=== PATIENT | female | born 1965 | race Caucasian/White ===

== ENCOUNTER 2019-10-05 17:30 | Emergency (ER) | payer OTHER, SELFPAY ==
--- NOTE | 2019-10-05 17:37 | ECG_ITS ---
Measurements Intervals [place] Rate: 78 P: 62 CO: 128 QRS: 83 QRSD: 98 T: 81 QT: 432 QTc: 492 Interpretive Statements SINUS RHYTHM VOLTAGE CRITERIA FOR LVH BORDERLINE ECG Electronically Signed On 10-06-2019 9:13:51 SVP by Grover Irizarry D.O.
[2019-10-05 17:52] VITALS: BP 167/97; PULSE 73; RESP 18; TEMP 36.5; O2SAT 100
--- NOTE | 2019-10-05 17:54 | PC.NURSE ---
Pt. rubbed their nipples to another RN while licking their mouth stating Come here and get a piece of this while pointing to their vaginal region. Pt. also stated to another RN that Rn was a sexy little thing while licking all over an emesis bag.
[2019-10-05 18:10] LABS: Basophils Absolute Auto 0.1 K/mm3 (0.0-0.1); Basophils Percent Auto 0.7 % (0.2-1.2); Eosinophils Percent Auto 0.3 % (0-4.4); Hematocrit 42.6 % (37.0-47.0); Hemoglobin 14.1 g/dL (12.0-15.0); Lymphocytes Absolute Auto 2.57 K/mm3 (0.9-3.2); Lymphocytes Percent Auto 25.7 % (18.3-44.2); Mean Corpuscular HGB Conc 33.1 g/dl (32-36); Mean Corpuscular Hemoglobin 30.5 pg (26-34); Monocytes Absolute Auto 0.6 K/mm3 (0.1-0.6); Monocytes Percent Auto 5.5 % (2.6-8.5); Neutrophils Absolute Auto 6.7 K/mm3 (1.3-6.7); Neutrophils Percent Auto 66.8 % (45.5-73.1); Platelet Count Result 369 k/mm3 (150-375); Red Blood Count 4.63 M/mm3 (4.2-5.4); Red Cell Distribution Width 12.5 % (11.5-14.5)
--- NOTE | 2019-10-05 18:10 | ED.ALCOHOL ---
HPI - Alcohol General Chief Complaint: Alcohol Stated Complaint: INTOXICATION Time Seen by Provider: 10/05/19 18:01 Source: patient, family (pt's sister) and RN notes reviewed Mode of arrival: EMS Limitations: intoxication History of Present Illness HPI narrative: Pt is a 53 y/o female with a Hx of anxiety and heroin abuse, who presents to the ED via EMS with c/o possible suicide attempt. According to the pt's sister, she has a Hx of heroin overdose. Pt's sister notes that she hasn't been normal ever since the overdose. She notes that she had drank several beers as well as several shots of [place] this afternoon. Pt's sister states that her son found the pt laying in her bed at home this evening with the gas on her stove left on. Pt's sister notes that she believed she was trying to kill herself, but states that the pt didn't leave a note or discuss any desire to end her life. Pt currently denies any suicidal ideations, nausea, vomiting, SOB, fever, or chills. Her sister notes that she has been recently complaining of a sore throat. HPI limited due to the pt being intoxicated. MD complaint: alcohol intoxication Last drink: unknown Associated symptoms: other (sore throat (per sister)) Treatments prior to arrival: none Related Data Allergies Allergy/AdvReac Type Severity Reaction Status Date / Time erythromycin base Allergy Mild Verified 09/02/17 16:30 Penicillins Allergy Unknown Unverified 09/02/17 16:30 Review of Systems Review of Systems: Narrative: ROS limited due to the pt being intoxicated. Constitutional: Constitutional: Denies chills and Denies fever(s) ENT: Reports sore throat (per sister) Respiratory: Respiratory: Denies dyspnea Gastrointestinal: Gastrointestinal: Denies nausea and Denies vomiting Psychiatric: Psychiatric: Reports suicidal ideation (pt denies; pt's sister reports) [facility] Past Medical History Medical History Anxiety Back pain Hemorrhoids HTN (hypertension) Inguinal hernia Surgical History Surgical History History of facial surgery facial reconstruction Hx of section x3 Hx of foot surgery rt foot Hx of hemorrhoidectomy Hx of inguinal hernia repair Social History Social History Alcohol intake: current Substance use type: heroin Gender identity (if verbalized by the patient): Female Comments PCP is Dr. Quevedo. Exam Narrative: Exam Narrative: GENERAL: Intoxicated-appearing, well-nourished, and in no acute distress. HEAD: Normocephalic, atraumatic. EYES: PERRL and EOMI. ENT: Mucous membranes moist. CHEST: Clear to auscultation. No respiratory distress. HEART: Regular rate and rhythm. Normal peripheral pulses. ABDOMEN: Soft, nontender, nondistended, normal active bowel sounds. EXTREMITIES: Normal range of motion. No edema. SKIN: Warm, dry, no rash. NEURO: No focal deficits. Alert and oriented x3. PSYCH: [place] and intoxicated. Course Course Emergency Course: Patient awake alert and oriented x3. Evaluated by crisis. No SI or HI. Apparently the nephew living in the home has some psych issues and you will often do things around the house like smearing feces on the floor after punching a toilet. Patient thinks that he may have turned on the gas while she was sleeping. Patient has been given contact information for crisis should she have additional concerns. Vital Signs Vital signs: Vital Signs Temperature 97.7 F 10/05/19 17:52 Pulse Rate 73 10/05/19 17:52 Respiratory Rate 18 10/05/19 17:52 Blood Pressure 167/97 H 10/05/19 17:52 Pulse Oximetry 100 10/05/19 17:52 Temperature 97.7 F 10/05/19 17:52 Pulse Rate 86 10/06/19 04:23 Respiratory Rate 12 10/06/19 04:23 Blood Pressure 132/91 H 10/06/19 04:23 Pulse Oximetry 96 10/06/19 04:23 MDM - Alcohol Lab Data Result diagra
[2019-10-05 18:14] LABS: Add Urine Microscopic? YES; Appearance Urine Clear (Clear); Bilirubin Urine Negative (Negative); Blood Urine 1+ (Negative); Color Urine Colorless (Yellow); Glucose Urine UA Negative (Negative); Ketones Urine Negative (Negative); Leukocyte Esterase Ur Negative LEU/UL (Negative); Nitrate Urine Negative (Negative); Protein Urine Negative (Negative); RBC Urine 0-2 /hpf (0-2); Squamous Epithelial Cell Urine Occasional /hpf (Few); Urobilinogen Urine Negative mg/dL (<2.0); WBC Urine 0-3 /hpf
[2019-10-05 18:17] LABS: Specific Grav Ur 1.004 (1.001-1.035)
[2019-10-05 18:24] LABS: Alanine Aminotransferase 17 U/L (4-35); Albumin Level 4.8 g/dL (3.5-5.1); Alkaline Phosphatase 79 U/L (38-126); Aspartate Amino Transferase 26 U/L (14-36); Bilirubin,Total 0.3 mg/dL (0.2-1.3); Blood Urea Nitrogen 7 mg/dL (7-17); Calcium 9.4 mg/dL (8.4-10.2); Carbon Dioxide 28 mmol/L (22-30); Chloride 101 mmol/L (98-107); Estimated Glomerular Filt Rate > 60; Glucose 110 mg/dL (65-105); Potassium 4.1 mmol/L (3.4-5.0); Sodium 142 mmol/L (137-145)
[2019-10-05 18:30] LABS: Amphetamine Screen Urine Negative (Negative); Barbiturate Screen Urine Negative (Negative); Benzodiazepines Screen Urine Negative (Negative); Cannabinoid Screen Urine Negative (Negative); Cocaine Screen Urine Negative (Negative); Methadone Screen Urine Negative (Negative); Opiate Screen Urine Negative (Negative); Phencyclidine Screen Urine Negative (Negative)
[2019-10-05 18:34] LABS: Ethanol 293 mg/dL (<10)
[2019-10-05 18:55] LABS: Thyroid Stimulating Hormone 0.386 uIU/mL (0.465-4.680)
[2019-10-05 21:12] VITALS: BP 108/77; PULSE 82; RESP 16; O2SAT 100
[2019-10-06 03:36] LABS: Ethanol 62 mg/dL (<10)
--- NOTE | 2019-10-06 03:49 | PC.NURSE ---
called crisis [phone] they will send someone out to evaluate pt.
--- NOTE | 2019-10-06 03:50 | PC.NURSE ---
PT DENIES SI/HI AT THIS TIME.
[2019-10-06 04:23] VITALS: BP 132/91; PULSE 86; RESP 12; O2SAT 96
--- NOTE | 2019-10-06 06:16 | PC.NURSE ---
PT WILL CALL FAMILY AT APPROX [phone] FOR A RIDE HOME.
--- NOTE | 2019-10-06 06:17 | PC.NURSE ---
KAYLA FROM CRISIS, OK FOR PATIENT TO GO HOME. PT DENIES SI/HI AND IS A & O X 3. ANSWERING ALL QUESTIONS APPROPRIATELY.
--- NOTE | 2019-10-06 06:49 | PC.NURSE ---
called pt sister per her request, she will call me back in 20 mins. pt needs a ride home
== END 2019-10-06 06:51 | disposition home or self-care (01) ==
PROVIDERS: Emergency Medicine; Emergency Provider Emergency Medicine; PCP Internal Medicine Gastroenterology
DX: F10.120 Alcohol abuse with intoxication, uncomplicated (principal); I10 Essential (primary) hypertension; Y90.8 Blood alcohol level of 240 mg/100 ml or more
CPT/HCPCS: 36415; 80053; 80307; 81001; 84443; 85025; 93005; 99283

== ENCOUNTER 2022-02-08 10:38 | Emergency (ER) | payer OTHER, SELFPAY ==
--- NOTE | ~2022-02-08 | US_ITS ---
EXAMINATION:US venous doppler LE LT INDICATION:Left leg pain TECHNIQUE: Multiple grayscale, color flow and Doppler images of the left lower extremity deep venous systems were obtained and reviewed. COMPARISON:No prior studies for comparison. FINDINGS: The common femoral, superficial femoral and popliteal veins demonstrate normal respiratory variation, augmentation and compressibility. Color flow is also seen within the posterior tibial, pe roneal, greater saphenous and profunda veins. IMPRESSION: 1: No lower extremity deep venous thrombosis. Reviewed, dictated and finalized at location A.
[2022-02-08 10:43] VITALS: BP 121/73; PULSE 86; RESP 18; TEMP 36.4; O2SAT 98
--- NOTE | 2022-02-08 11:11 | ED.DENTAL ---
HPI - Dental/Oral General Chief complaint: Dental/Oral Stated complaint: tooth ache, leg issue Time Seen by Provider: 02/08/22 11:02 History of Present Illness HPI Narrative: 56-year-old female presents stating that she has pain in her left upper tooth for the last week, she also has pain in her left upper leg for the last week or 2, denies any recent trauma, states that she has been taking Tylenol and ibuprofen at home with only minimal improvement, no fevers or chills, nausea or vomiting, no swelling or difficulty swallowing or changes in her voice. Related Data Allergies Allergy/AdvReac Type Severity Reaction Status Date / Time Penicillins AdvReac Swelling Verified 02/08/22 11:21 Review of Systems Review of Systems: CONST: No fever. HEENT: No sore throat C/V: No chest pain RESP: No cough GI: No nausea vomiting : No dysuria. M/S: Left lower extremity pain SKIN: No rash. NEURO: [No headache or focal numbness or weakness] PSYCH: [No depression] [facility] Family History Family History (Updated 02/08/22 @ 11:11 by Gayla Huffman MD) Mother DVT (deep venous thrombosis) Social History Social History (Updated 02/08/22 @ 11:11 by Gayla Huffman MD) Alcohol intake: current Exam Narrative: EXAMINATION OF ORGAN SYSTEMS/BODY AREAS: Constitutional: Vital signs per nursing GENERAL:[No acute distress, non-toxic appearing.] HEAD: Normal with no signs of head trauma. EYES: EOMI, conjunctiva normal ENT: Hearing grossly intact LUNGS: Nonlabored breathing. HEART: [Regular rate and rhythm] EXT: Normal range of motion SKIN: [No rashes or lesions.] NEURO: [Alert and oriented x 3. No gross focal sensory or strength deficits.] PSYCH: Normal affect Course Vital Signs Vital signs: Vital Signs Temperature 97.5 F L 02/08/22 10:43 Pulse Rate 86 02/08/22 10:43 Respiratory Rate 18 02/08/22 10:43 Blood Pressure 121/73 02/08/22 10:43 Pulse Oximetry 98 02/08/22 10:43 Oxygen Delivery Room Air 02/08/22 10:43 Temperature 97.5 F L 02/08/22 10:43 Pulse Rate 86 02/08/22 10:43 Respiratory Rate 18 02/08/22 10:43 Blood Pressure 121/73 02/08/22 10:43 Pulse Oximetry 98 02/08/22 10:43 Oxygen Delivery Room Air 02/08/22 10:43 MDM - Dental/Oral MDM Narrative Medical decision making narrative: 56-year-old female presenting with left leg pain and tooth pain, vital stable, exam shows no rash, she has full range of motion and is ambulating with steady gait, no obvious palpable abscess in the mouth and no trismus, she is well-appearing and I did obtain a DVT ultrasound to rule out DVT given her leg pain and family history of blood clots, this is negative, she is reassured and urged to follow-up with her primary care doctor and the dentist. She will return for any further issues. Discharge Plan Discharge Clinical Impression: Toothache, Left leg pain Patient Disposition: Home, Self-Care Condition: Stable Instructions: Antibiotic Form, Toothache (ED), Leg Pain (ED) Additional Instructions: Please go see your primary care doctor and the dentist. You can always come back here if you feel worse. Prescriptions: New clindamycin HCl 300 mg capsule 300 mg PO Q8H Qty: 30 0RF methocarbamol 750 mg tablet 750 mg PO TID Qty: 30 0RF acetaminophen 500 mg capsule 1,000 mg PO Q6H PRN (Reason: pain) Qty: 60 0RF Follow-up/Referrals: PHYSICIAN,BAR MANAGER [Non-Staff] - Claude Somers, DO [Physician] - 3 Days Stand Alone Forms: Work/School Release IP
[2022-02-08] MEDS: CLINDAMYCIN HCL 150 MG CAP 450 MG PO (11:21)
[2022-02-08] MEDS: KETOROLAC 30 MG/ML VIAL (*BKC) IM (11:21)
== END 2022-02-08 12:44 | disposition home or self-care (01) ==
PROVIDERS: Emergency Provider Emergency Medicine; PCP Registered Nurse
DX: K08.89 Other specified disorders of teeth and supporting structures (principal); M79.605 Pain in left leg
CPT/HCPCS: 93971; 96372; 99283; 99284; A9270; J1885

== ENCOUNTER 2022-02-14 06:56 | Emergency (ER) | payer OTHER, SELFPAY ==
--- NOTE | ~2022-02-14 | XR_ITS ---
EXAMINATION: XR femur LT min 2V DATE: 02/14/2022 07:44 INDICATION: Posterior left femur pain TECHNIQUE: Overlapping proximal and distal, AP and lateral views of the left femur were obtained. COMPARISON: None FINDINGS: Alignment is normal. No fracture. Joint spaces are normal. No knee joint effusion. Soft tissues are unremarkable. IMPRESSION: Negative left femur radiographs. Reviewed, dictated and finalized at location A.
[2022-02-14 07:00] VITALS: BP 172/100; PULSE 84; RESP 24; TEMP 36.6; O2SAT 100
[2022-02-14] MEDS: HYDROcodone/acetaminophen (*CRX) 5-325 MG TABLET 1 TAB PO (07:27)
--- NOTE | 2022-02-14 07:40 | ED.GENADULT ---
HPI - General Adult General Chief complaint: Extremity Problem,Nontraumatic Stated complaint: LLE pain Time Seen by Provider: 02/14/22 07:04 Source: RN notes reviewed History of Present Illness HPI narrative: Patient presents emergency department from home for left posterior leg pain. Patient states symptoms began over 2 weeks ago. The pain is located in the left posterior lateral thigh but does not extend to the buttocks or to the knee. States that the pain has been constant she denies any direct trauma or injury she states she has no lower back pain she states that nothing makes the pain better or worse she has been taking ibuprofen for the pain with minimal relief she denies any fevers or chills low back pain bowel or bladder incontinence numbness or tingling in the extremities or any other symptoms Related Data Allergies Allergy/AdvReac Type Severity Reaction Status Date / Time Penicillins AdvReac Swelling Verified 02/08/22 11:21 Review of Systems Review of Systems: Gen.: Denies fevers or chills Respiratory: Denies shortness of breath CV: Denies chest pain GI: Denies abdominal pain nausea, emesis denies incontinence Musculoskeletal: See HPI Neuro: Denies numbness, tingling, weakness or focal weakness Skin: Denies rash Except as documented, all other systems reviewed and negative PMF Past Medical History Medical History (Updated 02/14/22 @ 08:40 by Max Smith DO) Patient denies significant medical history Family History Family History (Updated 02/08/22 @ 11:11 by Gayla Huffman MD) Mother DVT (deep venous thrombosis) Social History Social History (Updated 02/14/22 @ 07:42 by Max Smith DO) Smoking status: Never smoker Alcohol intake: current Exam Narrative: APPEARANCE: No acute distress, nontoxic, resting in bed EYES: EOMI HEENT: Normocephalic, atraumatic, OMM RESPIRATORY: No respiratory distress ABDOMINAL: Soft, nontender, nondistended, MUSCULOSKELETAl: Moves all extremities. No clubbing, cyanosis or edema. Tenderness over the left lateral posterior thigh there is no swelling or ecchymosis no tenderness of the knee or hip with full range of motion of both dorsalis pedis pulse 2+ neurovascular intact no calf tenderness no overlying erythema no ecchymosis Back: No midline thoracic or lumbar tenderness to palpation no tenderness over the left piriformis region NEURO: Awake and alert. Following commands, speech normal, no focal deficits muscle strength 5 out of 5 in bilateral lower extremities SKIN:: Warm, dry. No rashes lesions or abrasions PSYCHIATRIC: Normal affect/mood, Course Course Emergency Course: Reviewed old records the patient was seen for the same pain on 02/08/2022 and had a lower extremity ultrasound that was normal at that time showing no evidence of DVT Discussed with patient results of workup and diagnosis. Discussed need for follow-up with primary care, proper use of medication, and reasons to return to the emergency department. Patient understands and agrees to current treatment plan Vital Signs Vital signs: Vital Signs Temperature 97.8 F 02/14/22 07:00 Pulse Rate 84 02/14/22 07:00 Respiratory Rate 24 H 02/14/22 07:00 Blood Pressure 172/100 H 02/14/22 07:00 Pulse Oximetry 100 02/14/22 07:00 Oxygen Delivery Room Air 02/14/22 07:00 Temperature 97.8 F 02/14/22 07:00 Pulse Rate 84 02/14/22 07:00 Respiratory Rate 24 H 02/14/22 07:00 Blood Pressure 172/100 H 02/14/22 07:00 Pulse Oximetry 100 02/14/22 07:00 Oxygen Delivery Room Air 02/14/22 07:00 Medical Decision Making MDM Narrative Medical decision making narrative: Patient with pain in left lateral posterior thigh and hamstring region pain at times radiate down into her ankle she has no tenderness in the buttocks or the lower back there is no neurologic deficits of the leg dorsalis pedis pulse 2+ lower extremity ultrasound done on the th or 6 days ago shows no eviden
--- NOTE | 2022-02-14 08:55 | PC.NURSE ---
Patient verbally and visible upset about not receiving pain medication prescription at the time verse writer brought in discharge papers. [employer] told patient she would speak with Dr. Smith. [employer] informed Dr. Smith, Dr. Smith wrote for pain medication. [employer] brought updated paperwork to patient for discharge, patient remains verbally and visually upset about her discharge plan and reports she has no ride home and will sit in the waiting all day and night.
[2022-02-14] MEDS: predniSONE 20 MG TABLET 60 MG PO (09:00)
--- NOTE | 2022-02-14 09:26 | PCCCNOTE ---
Phone call from main lobby to assist with transportation for patient as she was discharged from ED but she doesn't know how to use the bus. Met with patient in the lobby, she verbalizes that her legs her and her sister won't answer the phone to assist with transportation. She does not have any money or a phone to use to call anyone else. Asked if there was anyone else that could pick her up and she states that her TONYA Trae, at [phone]. Provided patient with mobile care coordination phone, patient called her TONYA who reports that he will pick her up in the main lobby of the hospital and is coming from [place]. Provided patient with some water while she is waiting.
== END 2022-02-14 09:12 | disposition home or self-care (01) ==
PROVIDERS: Emergency Provider Emergency Medicine; PCP Registered Nurse
DX: M54.32 Sciatica, left side (principal)
CPT/HCPCS: 73552; 99283; A9270; J7512